=== PATIENT | male | born 2000 | race Two or more races ===

== ENCOUNTER 2019-12-28 21:08 | Emergency (ER) | payer SELFPAY ==
[~2019-12-28] VITALS: Ht 182.9 cm; Wt 75.7 kg
--- NOTE | 2019-12-28 21:10 | NUR ---
PT AAOX4. AMBULATORY WITH STEADY GAIT. BIBSELF C/O L HAND PAIN WITH SWELING SINCE YESTERDAY. MD AT BEDSIDE FOR EVAL. AWAITING ORDERS.
--- NOTE | 2019-12-28 21:25 | NUR ---
XRAY AT BEDSIDE
--- NOTE | 2019-12-28 22:20 | NUR ---
Patient discharged to home in stable condition. Written and verbal after care instructions given. Patient verbalizes understanding of instruction.
[2019-12-28 22:21] VITALS: BP 141/79
== END 2019-12-28 22:23 | disposition home or self-care (01) ==
LOC: ER 21:08
DX: S62.391A Other fracture of second metacarpal bone, left hand, initial encounter for closed fracture (principal); W22.8XXA Striking against or struck by other objects, initial encounter; Y93.89 Activity, other specified; Y92.89 Other specified places as the place of occurrence of the external cause; Y99.8 Other external cause status
CPT/HCPCS: 73130-TC

== ENCOUNTER 2024-07-01 10:48 | Emergency (ER) | payer OTHER ==
[~2024-07-01] VITALS: Ht 182.9 cm; Wt 79.4 kg
[2024-07-01 13:38] VITALS: BP 125/85; TEMP 98; O2SAT 99
== END 2024-07-01 13:38 | disposition home or self-care (01) ==
LOC: ER 10:51
DX: S76.311A Strain of muscle, fascia and tendon of the posterior muscle group at thigh level, right thigh, initial encounter (principal); M77.8 Other enthesopathies, not elsewhere classified; M25.561 Pain in right knee; M79.605 Pain in left leg; M79.89 Other specified soft tissue disorders
CPT/HCPCS: 93970-TC

== ENCOUNTER 2024-07-05 19:33 | Emergency (ER) | payer OTHER ==
[~2024-07-05] VITALS: Ht 182.9 cm; Wt 79.4 kg
[2024-07-05] MEDS ORDERED: KETOROLAC TROMETHAMINE INJ 30 MG/ML VIAL ONE (21:30)
[2024-07-05] MEDS ORDERED: ACETAMINOPHEN 325 MG TABLET ONE (21:30)
[2024-07-05] MEDS ORDERED: ONDANSETRON 4 MG TAB.RAPDIS ONE (21:30)
[2024-07-05] MEDS: KETOROLAC TROMETHAMINE INJ 30 MG/ML VIAL IM ONE (21:38)
[2024-07-05] MEDS: ONDANSETRON 4 MG TAB.RAPDIS SL ONE (21:40)
[2024-07-05] MEDS: ACETAMINOPHEN 325 MG TABLET PO ONE (21:40)
[2024-07-05 21:44] LABS: BASOPHILS % (AUTO) 0.4 % (0.0-2.0); EOSINOPHILS # (AUTO) 0.1 K/uL (0.0-0.7); EOSINOPHILS % (AUTO) 1.7 % (0.0-6.0); HEMATOCRIT 42 % (39-51); HEMOGLOBIN 14.1 g/dL (13.5-17.5); LYMPHOCYTES # (AUTO) 0.5 K/uL (0.8-4.8); LYMPHOCYTES % (AUTO) 8.5 % (20.0-44.0); MEAN CORPUSCULAR HEMOGLOBIN 29 PG (26.0-33.0); MEAN CORPUSCULAR HGB CONC 34 g/dl (31.0-36.0); MEAN CORPUSCULAR VOLUME 86 fL (80-96); MONOCYTES # (AUTO) 0.9 K/uL (0.1-1.30); MONOCYTES % (AUTO) 16.3 % (2.0-12.0); NEUTROPHILS # (AUTO) 4.2 K/uL (1.8-8.9); NEUTROPHILS % (AUTO) 73.1 % (43.0-81.0); PLATELET COUNT (AUTO) 198 K/uL (150-450); RED BLOOD CELL COUNT(AUTO) 4.87 MIL/uL (4.5-6.0); RED CELL DISTRIBUTION WIDTH 13.4 % (11.5-15.0); WHITE BLOOD COUNT (AUTO) 5.7 K/uL (4.3-11.0)
[2024-07-05 21:53] LABS: CALCIUM, SERUM 8.9 mg/dL (8.5-10.1); CREATININE 1.1 mg/dL (0.6-1.3); POTASSIUM 3.6 mmol/L (3.5-5.1)
[2024-07-05 22:00] LABS: ALBUMIN 4.2 g/dL (3.4-5.0); BILIRUBIN,TOTAL 0.4 mg/dL (0.2-1.0); TOTAL PROTEIN, SERUM 8.1 g/dL (6.4-8.2)
[2024-07-05] MEDS ORDERED: ACET325C7 PO (23:05)
[2024-07-05] MEDS ORDERED: IBUP-1957 PO (23:05)
[2024-07-05] MEDS ORDERED: BENZ1LOZ58 PO (23:05)
[2024-07-05] MEDS ORDERED: GUAI1TBM19 PO (23:05)
[2024-07-05] MEDS ORDERED: BENZ-13 PO (23:05)
[2024-07-05 23:12] VITALS: BP 134/87; TEMP 99.7; O2SAT 98
== END 2024-07-05 23:14 | disposition home or self-care (01) ==
LOC: ER 19:36
DX: J10.1 Influenza due to other identified influenza virus with other respiratory manifestations (principal); R11.0 Nausea; M79.605 Pain in left leg; M79.661 Pain in right lower leg; Z20.822 Contact with and (suspected) exposure to COVID-19
CPT/HCPCS: 99284; 71045; 87426; 96372; 87804 ×2; 85025; 36415; 80053; J1885; Q0162; A4223